=== PATIENT | male | born 1990 | race Caucasian/White ===

== ENCOUNTER 2018-10-23 13:43 | Emergency (ER) | payer SELFPAY ==
--- NOTE | 2018-10-23 16:07 | RAD REPORT ---
EXAM DESCRIPTION: CT - Stone Protocol - 10/23/2018 3:54 pm CLINICAL HISTORY: Abdominal pain. Flank pain COMPARISON: None. TECHNIQUE: Computed axial tomography of the abdomen pelvis was obtained without oral or IV contrast. Lack of IV and oral contrast limits evaluation of solid organs, bowel, and vessels. Coronal reformat norberto images were obtained and reviewed. All CT scans are performed using dose optimization technique as appropriate and may include automated exposure control or mA/KV adjustment according to patient size. FINDINGS: A renal calculus is not seen. An ureteral calculus is not noted. A bladder calculus is not present. The liver, spleen, pancreas and adrenals appear grossly normal There is no evidence of diverticulitis. The appendix appears normal Tiny umbilical hernia IMPRESSION: Negative for a genitourinary calculus
[2018-10-23] MEDS ORDERED: KETOROLAC 30 MG/ML INJ ONE (16:12)
--- NOTE | 2018-10-23 16:20 | EDPHYS ---
Physician Documentation [facility] Name: Cuauhtemoc Torres Jr Age: 28 yrs Sex: Male : 1990 Arrival Date: 10/23/2018 Time: 13:46 Bed 16 Private MD: Ken Berger E ED Physician Shubham Malave HPI: 10/23 15:39 This 28 yrs old Male presents to ER via Ambulatory with complaints of Back snw Pain. 15:39 The patient presents with pain that is acute, with no known mechanism of injury. The snw symptoms are located in the low back, and left lower abdomen. Onset: The symptoms/episode began/occurred suddenly, yesterday. The pain radiates to the posterior aspect of left lateral abdomen and left lower quadrant. Associated signs and symptoms: The patient has no apparent associated signs or symptoms. The problem was sustained from unknown cause. Severity of symptoms: At their worst the symptoms were moderate, severe. The patient has not experienced similar symptoms in the past. The patient has not recently seen a physician. describes flank pain as sharp. Historical: - Allergies: 14:06 No Known Allergies; sv - Home Meds: 14:06 None [Active]; sv - PMHx: 14:06 None; sv - PSHx: 14:06 None; sv - Immunization history:: Flu vaccine is not up to date. - Social history:: Smoking status: Patient uses tobacco products, smokes one-half pack cigarettes per day. - Ebola Screening: : No symptoms or risks identified at this time. ROS: 15:39 Constitutional: Negative for fever, chills, and weight loss, Eyes: Negative for injury, snw pain, redness, and discharge, ENT: Negative for injury, pain, and discharge, Neck: Negative for injury, pain, and swelling, Cardiovascular: Negative for chest pain, palpitations, and edema, Respiratory: Negative for shortness of breath, cough, wheezing, and pleuritic chest pain, Abdomen/GI: Negative for nausea, vomiting, diarrhea, positive for left abdominal pain and constipation : Negative for injury, bleeding, discharge, and swelling, MS/Extremity: Negative for injury and deformity, Skin: Negative for injury, rash, and discoloration, Neuro: Negative for headache, weakness, numbness, tingling, and seizure. 15:39 Back: Positive for flank pain, on the left. Exam: 15:37 Constitutional: This is a well developed, well nourished patient who is awake, alert, snw and in no acute distress. Head/Face: Normocephalic, atraumatic. Eyes: Pupils equal round and reactive to light, extra-ocular motions intact. Lids and lashes normal. Conjunctiva and sclera are non-icteric and not injected. Cornea within normal limits. Periorbital areas with no swelling, redness, or edema. ENT: Nares patent. No nasal discharge, no septal abnormalities noted. Tympanic membranes are normal and external auditory canals are clear. Oropharynx with no redness, swelling, or masses, exudates, or evidence of obstruction, uvula midline. Mucous membranes moist. Neck: Trachea midline, no thyromegaly or masses palpated, and no cervical lymphadenopathy. Supple, full range of motion without nuchal rigidity, or vertebral point tenderness. No Meningismus. Chest/axilla: Normal chest wall appearance and motion. Nontender with no deformity. No lesions are appreciated. Cardiovascular: Regular rate and rhythm with a normal S1 and S2. No gallops, murmurs, or rubs. Normal PMI, no JVD. No pulse deficits. Respiratory: Lungs have equal breath sounds bilaterally, clear to auscultation and percussion. No rales, rhonchi or wheezes noted. No increased work of breathing, no retractions or nasal flaring. Back: No spinal tenderness. No costovertebral tenderness. Full range of motion. Skin: Warm, dry with normal turgor. Normal color with no rashes, no lesions, and no evidence of cellulitis. MS/ Extremity: Pulses equal, no cyanosis. Neurovascular intact. Full, normal range of motion. Neuro: Awake and alert, GCS 15, oriented to person, place, time, and situation. Cranial nerves II-XII grossly intact. Motor strength 5/5 in all extremities. Sensory grossly intact. Cerebellar exam normal. Normal gait. Psych: Awake, alert, with orientation to person, place and time. Behavior, mood, and affect are within normal limits. 15:37 Abdomen/GI: Inspection: abdomen appears normal, Bowel sounds: normal, in all quadrants, Palpation: mild abdominal tenderness, moderate abdominal tenderness, in the left lower quadrant. Vital Signs: 14:06 BP 137 / 91; Pulse 100; Resp 20; Temp 98.5; Pulse Ox 100% ; Weight 97.07 kg; Height 5 sv ft. 10 in. (177.80 cm); Pain 5/10; 16:00 BP 139 / 92; Pulse 87; Resp 18; Pulse Ox 99% on R/A; Pain 4/10; em 14:06 Body Mass Index 30.71 (97.07 kg, 177.80 cm) sv MDM: 15:31 Patient medically screened. snw 16:21 Data reviewed: vital signs, nurses notes. Data interpreted: Pulse oximetry: on room air snw is 100 %. Interpretation: normal. Counseling: I had a detailed discussion with the patient and/or guardian regarding: the historical points, exam findings, and any diagnostic results supporting the discharge/admit diagnosis, the presence of at least one elevated blood pressure reading (>120/80) during this emergency department visit, radiology results, the need for outpatient follow up, to return to the emergency department if symptoms worsen or persist or if there are any questions or concerns that arise at home. Special discussion: Based on the patient's Hx, exam, and Dx evaluation, there is no indication for emergent surgery or inpatient Tx. It is understood by the patient/guardian that if the Sx's persist or worsen they need to return immediately for re-evaluation. Based on the history and exam findings, there is no indication for further emergent testing or inpatient evaluation. I discussed with the patient/guardian the need to see the primary care provider for further evaluation of the symptoms. 10/23 15:37 Order name: Urine Culture snw 10/23 15:37 Order name: Urine Microscopic Only; Complete Time: 16:55 snw 10/23 15:37 Order name: CT Stone Protocol; Complete Time: 16:18 snw 10/23 16:55 Order name: Urine Dipstick--Ancillary (enter results) bd 10/23 15:37 Order name: Urine Dipstick-Ancillary (obtain specimen); Complete Time: 16:04 snw Administered Medications: 16:10 Drug: TORadol 60 mg Route: IM; Site: right gluteus; em 16:40 Follow up: Response: No adverse reaction; Pain is decreased em 16:50 Drug: Magnesium Citrate Liquid 300 ml Route: PO; em 16:57 Follow up: Response: Medication administered at discharge. em Disposition: 12/14/18 16:19 Discharged to Home. Impression: Constipation, Low back pain. - Condition is Stable. - Discharge Instructions: Back Pain, Adult, Constipation, Adult, High-Fiber Diet, Hypertension, Musculoskeletal Pain, Back Injury Prevention, [id number], Cryotherapy, Rehydration, Adult, Heat Therapy. - Prescriptions for orphenadrine citrate 100 mg Oral Tablet Sustained Release - take 1 tablet by ORAL route 2 times per day As needed; 20 tablet. Miralax 17 gram/dose Oral - take 1 box by ORAL route once daily dilute powder in 8 ounces of water or juice; 1 box. Diclofenac Sodium 75 mg Oral Tablet Sustained Release - take 1 tablet by ORAL route 2 times per day; 30 tablet. - Work release form, Medication Reconciliation Form, Thank You Letter, Antibiotic Education, Prescription Opioid Use form. - Follow up: Ken Berger MD; When: 2 - 3 days; Reason: Recheck today's complaints, Continuance of care, Re-evaluation by your physician. Follow up: Emergency Department; When: As needed; Reason: Worsening of condition. Addendum: 10/26/2018 06:50 Co-signature as Attending Physician, Shubham Malave MD I agree with the assessment and c silverio plan of care. Signatures: Dispatcher [employer] Lakeisha Abad RN RN sv Anderson, Corey, MD MD cha Therrien, Shelly, PICKLING MACHINE OPERATOR-C PICKLING MACHINE OPERATOR-Csnw Marco Antonio Brito, HYDROSTATIC TUBING TESTER HYDROSTATIC TUBING TESTER em Corrections: (The following items were deleted from the chart) 10/23 17:01 16:19 10/23/2018 16:19 Discharged to Home. Impression: Constipation; Low back pain. em Condition is Stable. Forms are Medication Reconciliation Form, Thank You Letter, Antibiotic Education, Prescription Opioid Use. Follow up: Ken Berger; When: 2 - 3 days; Reason: Recheck today's complaints, Continuance of care, Re-evaluation by your physician. Follow up: Emergency Department; When: As needed; Reason: Worsening of condition. snw
--- NOTE | 2018-10-23 16:20 | ER ---
Nurse's Notes [facility] Name: Cuauhtemoc Torres Jr Age: 28 yrs Sex: Male : 1990 Arrival Date: 10/23/2018 Time: 13:46 Bed 16 Private MD: Ken Berger E Diagnosis: Constipation;Low back pain Presentation: 10/23 14:05 Presenting complaint: Patient states: constipation and left low back pain x 3 days. sv Denies injury or lifting anything heavy. Transition of care: patient was not received from another setting of care. Onset of symptoms was October 20, 2018. Care prior to arrival: None. 14:05 Method Of Arrival: Ambulatory sv 14:05 Acuity: BINDU 4 sv 15:55 Risk Assessment: Do you want to hurt yourself or someone else? Patient reports no em desire to harm self or others. Initial Sepsis Screen: Does the patient meet any 2 criteria? No. Patient's initial sepsis screen is negative. Does the patient have a suspected source of infection? No. Patient's initial sepsis screen is negative. Historical: - Allergies: 14:06 No Known Allergies; sv - Home Meds: 14:06 None [Active]; sv - PMHx: 14:06 None; sv - PSHx: 14:06 None; sv - Immunization history:: Flu vaccine is not up to date. - Social history:: Smoking status: Patient uses tobacco products, smokes one-half pack cigarettes per day. - Ebola Screening: : No symptoms or risks identified at this time. Screenin:55 Abuse screen: Denies threats or abuse. Nutritional screening: No deficits noted. em Tuberculosis screening: No symptoms or risk factors identified. Fall Risk None identified. Assessment: 15:55 General: Appears in no apparent distress. comfortable, Behavior is calm, cooperative, em appropriate for age, Denies fever. Pain: Complains of pain in posterior aspect of left lateral abdomen Pain currently is 4 out of 10 on a pain scale. Is intermittent. Neuro: Level of Consciousness is awake, alert, obeys commands, Oriented to person, place, time, situation. Cardiovascular: Capillary refill < 3 seconds Patient's skin is warm and dry. Respiratory: Airway is patent Respiratory effort is even, unlabored, Respiratory pattern is regular, symmetrical. GI: Abdomen is flat, Bowel sounds present X 4 quads. Abd is soft X 4 quads Abdomen is tender to palpation X 4 quads. Reports Patient currently denies nausea, vomiting. : Denies burning with urination, pain. EENT: No signs and/or symptoms were reported regarding the EENT system. Derm: Skin is intact, is healthy with good turgor, Skin is pink, warm \T\ dry. Musculoskeletal: Range of motion: intact in all extremities. 16:40 Reassessment: Patient appears in no apparent distress at this time. Patient and/or em family updated on plan of care and expected duration. Pain level reassessed. Patient is alert, oriented x 3, equal unlabored respirations, skin warm/dry/pink. Patient denies pain at this time. Patient states feeling better. Patient states symptoms have improved. Vital Signs: 14:06 BP 137 / 91; Pulse 100; Resp 20; Temp 98.5; Pulse Ox 100% ; Weight 97.07 kg; Height 5 sv ft. 10 in. (177.80 cm); Pain 5/10; 16:00 BP 139 / 92; Pulse 87; Resp 18; Pulse Ox 99% on R/A; Pain 4/10; em 14:06 Body Mass Index 30.71 (97.07 kg, 177.80 cm) sv ED Course: 13:46 Patient arrived in ED. sb2 13:46 Ken Berger MD is Private Physician. sb2 14:06 Triage completed. sv 14:07 Arm band placed on. sv 15:30 Shaniqua العراقي F[facility]-C [facility]. snw 15:30 Shubham Malave MD is Attending Physician. snw 15:42 Marco Antonio Brito LVN is Primary Nurse. em 15:[address] via wheelchair. vr 15:53 CT completed. Patient tolerated procedure well. Patient moved back from CT. vm2 15:55 CT Stone Protocol In Process Unspecified. EDMS 16:04 Urine collected: clean catch specimen, clear. 5 16:04 Urine Culture Sent. 5 16:04 Urine Microscopic Only Sent. mh5 16:05 Patient has correct armband on for positive identification. Bed in low position. Call [facility] light in reach. Pulse ox on. NIBP on. 16:18 Ken Berger MD is Referral Physician. snw 16:56 No provider procedures requiring assistance completed. em 16:56 Patient did not have IV access during this emergency room visit. em Administered Medications: 16:10 Drug: TORadol 60 mg Route: IM; Site: right gluteus; em 16:40 Follow up: Response: No adverse reaction; Pain is decreased em 16:50 Drug: Magnesium Citrate Liquid 300 ml Route: PO; em 16:57 Follow up: Response: Medication administered at discharge. em Outcome: 16:19 Discharge ordered by MD. gutierrez 17:00 Discharged to home ambulatory. em 17:00 Condition: good 17:00 Discharge instructions given to patient, Instructed on discharge instructions, follow up and referral plans. medication usage, Demonstrated understanding of instructions, follow-up care, medications, Prescriptions given X 3. 17:01 Patient left the ED. em Signatures: Dispatcher [employer] Lakeisha Abad RN RN Shaniqua Coughlin, VACUUM CONDITIONER OPERATOR-C VACUUM CONDITIONER OPERATOR-Csnw Marco Antonio Brito, BOILER ROOM OPERATOR BOILER ROOM OPERATOR Misty Mcclellan Maria Misty Bunch Alice Mayer
[2018-10-23 16:47] LABS: Urine Bacteria <20 /HPF (NONE SEEN); Urine Culture Reflex Order NOT NEEDED; Urine RBC <5 /HPF (NONE SEEN)
[2018-10-23] MEDS ORDERED: MAGNESIUM CITRATE 300 ML BOT ONE (16:57)
[2018-10-23 17:26] LABS: Urine Blood TRACE (NEG); Urine Glucose NEGATIVE (NEG); Urine Protein NEGATIVE (NEG); Urine Specific Gravity 1.015 (1.005-1.030)
== END 2018-10-23 17:01 | disposition home or self-care (01) ==
LOC: ER 13:43
DX: K59.00 Constipation, unspecified (principal); F17.210 Nicotine dependence, cigarettes, uncomplicated
CPT/HCPCS: 74176; 76377; 81003; 81015; 87086; 87088; 96372; 99284